=== PATIENT | female | born 1995 | race Caucasian/White ===

== ENCOUNTER → 2024-08-28 | Outpatient (CLI) | payer OTHER ==
[~2024-08-28] MED LIST: IBUP600 PO; LOPE2C PO; PHENA200 PO; SULTRIDS PO
[2024-08-28 10:51] LABS: Source, Urine Clean Catch
[2024-08-28 13:27] LABS: Yeast/Fungi Urine Few /hpf
[2024-08-28 13:29] LABS: Bacteria Mod /hpf; Calcium Oxalate Crystals Few /hpf; Red Blood Cells, Urine 0-2 /hpf (0-2); Squamous Epithelial Cells Few /hpf (Few); White Blood Cells, Urine 0-2 /hpf (0-5)
== END | disposition home or self-care (01) ==
LOC: LAB SHORT 10:49
PROVIDERS: Obstetrics & Gynecology
DX: Z34.01 Encounter for supervision of normal first pregnancy, first trimester (principal)
CPT/HCPCS: 81015; 87086

== ENCOUNTER → 2025-03-18 | Outpatient (CLI) | payer OTHER | LOC: LAB 14:33 → LAB SHORT 14:33 | DX: O09.93 Supervision of high risk pregnancy, unspecified, third trimester (principal); Z3A.00 Weeks of gestation of pregnancy not specified | CPT/HCPCS: 87081; 87150 ==

== ENCOUNTER 2025-04-09 20:04 | Inpatient (IN) | payer OTHER ==
[~2025-04-09] VITALS: Ht 160 cm; Wt 106.4 kg
[2025-04-09] MEDS ORDERED: Tranexamic Acid 100 ML IV SCH (20:35)
[2025-04-09] MEDS ORDERED: Carboprost Tromethamine 250 MCG/ML 1ML Amp IM PRN (20:35)
[2025-04-09] MEDS ORDERED: ePHEDrine Sulfate 50 MG/ML 1ML Injection XX PRN (20:35)
[2025-04-09] MEDS ORDERED: Oxytocin 10 Unit / ML Vial IM PRN (20:35)
[2025-04-09] MEDS ORDERED: FentaNYL 2mcg/ml-Bup 0.1% Epd 250 ML EPI PRN (20:35)
[2025-04-09] MEDS ORDERED: Ondansetron HCl 2 MG / ML 2ML Vial IV PRN (20:35)
[2025-04-09] MEDS ORDERED: OXYTOCIN/RINGER'S LACTATE 500 ML IV PRN (20:35)
[2025-04-09] MEDS ORDERED: Methylergonovine Maleate 0.2MG / ML 1ML Amp IM PRN (20:35)
[2025-04-09] MEDS ORDERED: OXYTOCIN/RINGER'S LACTATE 500 ML IV SCH (20:45)
[2025-04-09 20:46] VITALS: BP 131/93
[2025-04-09] MEDS ORDERED: ASPI81CH PO (20:58)
[2025-04-09] MEDS ORDERED: PRENATAL TABLE1 EAC2 PO (20:58)
[2025-04-09] MEDS ORDERED: ALBU90OI INH (21:00)
[2025-04-09 21:13] LABS: BASOPHILS ABSOLUTE AUTO 0.05 K/mm3 (0.00-0.23); BASOPHILS PERCENT AUTO 0 % (0-2); EOSINOPHILS ABSOLUTE AUTO 0.13 K/mm3 (0.00-0.68); EOSINOPHILS PERCENT AUTO 1 % (0-6); Hematocrit 35.4 % (33.0-51.0); Hemoglobin 12.1 g/dL (11.5-16.0); IMMATURE GRAN ABSOLUTE AUTO 0.16 K/mm3 (0.00-0.10); IMMATURE GRAN PERCENT AUTO 1 % (0-1); LYMPHOCYTES ABSOLUTE AUTO 3.20 K/mm3 (0.84-5.20); LYMPHOCYTES PERCENT AUTO 26 % (21-46); MONOCYTES ABSOLUTE AUTO 0.66 K/mm3 (0.16-1.47); MONOCYTES PERCENT AUTO 5 % (4-13); Mean Corpuscular HGB Conc 34.2 g/dL (31.5-36.5); Mean Corpuscular Volume 78 fL (80-100); NEUTROPHILS ABSOLUTE AUTO 8.23 K/mm3 (1.96-9.15); NEUTROPHILS PERCENT AUTO 66 % (41-73); NRBC ABSOLUTE 0.00 K/mm3 (0.00-0.02); NRBC Auto 0.0 /100 WBC (0.0-0.2); Platelet Count 254 K/mm3 (150-400); RDW Coefficient Variation 14.8 % (11.7-14.2); RDW Standard Deviation 42.4 fL (35.1-46.3)
[2025-04-09 22:05] VITALS: BP 135/87
[2025-04-09 22:36] VITALS: BP 128/76
[2025-04-09 23:06] VITALS: BP 118/76
[2025-04-09 23:36] VITALS: BP 119/69
[2025-04-10] VITALS (46 sets, daily range): BP systolic 94–152; BP diastolic 46–98
[2025-04-10] MEDS ORDERED: Methylergonovine Maleate 0.2MG / ML 1ML Amp IV ONE (05:48)
[2025-04-10] MEDS ORDERED: FentaNYL Citrate 50 MCG/ML 2 ML Injection ONE (15:01)
[2025-04-10] MEDS ORDERED: FentaNYL Citrate 50 MCG/ML 2 ML Injection IV PRN (15:05)
[2025-04-11] VITALS (14 sets, daily range): BP systolic 113–140; BP diastolic 60–93
[2025-04-11] MEDS ORDERED: FLU VACC TS2025-26(6MOS UP)/PF 45 MCG/0.5 ML SYRINGE IM SCH (00:45)
[2025-04-11] MEDS ORDERED: Methylergonovine Maleate 0.2MG / ML 1ML Amp IM PRN (00:45)
[2025-04-11] MEDS ORDERED: Rho(D) Immune Globulin 300 MCG / SYR IM ONE (00:45)
[2025-04-11] MEDS ORDERED: OXYTOCIN/RINGER'S LACTATE 500 ML IV SCH (00:45)
[2025-04-11] MEDS ORDERED: Witch Hazel/Glycerin PADS TOP PRN (00:45)
[2025-04-11] MEDS ORDERED: Ketorolac Tromethamine 30mg Vial IV PRN (00:45)
[2025-04-11] MEDS ORDERED: Benzocaine Topical Anesthetic Spray 60GM TOP PRN (00:50)
[2025-04-11] MEDS ORDERED: Tranexamic Acid 100 ML IV SCH (01:00)
[2025-04-11 05:25] LABS: Hematocrit 31.0 % (33.0-51.0); Hemoglobin 10.6 g/dL (11.5-16.0); Mean Corpuscular HGB Conc 34.2 g/dL (31.5-36.5); Mean Corpuscular Volume 80 fL (80-100); NRBC ABSOLUTE 0.00 K/mm3 (0.00-0.02); NRBC Auto 0.0 /100 WBC (0.0-0.2); Platelet Count 245 K/mm3 (150-400); RDW Coefficient Variation 14.9 % (11.7-14.2); RDW Standard Deviation 43.3 fL (35.1-46.3)
[2025-04-11] MEDS ORDERED: Prenatal Vit/FE Fumarate/FA 1 Tab PO SCH (09:00)
[2025-04-11] MEDS ORDERED: Rho(D) Immune Globulin 300 MCG / SYR IV ONE (10:15)
--- NOTE | 2025-04-12 03:33 | NUR ---
Assumed care at start of shift, mother resting in chair nursing at this time. Previous shift reports nipple shield given as mother has flat nipples. Not observed at this time as mother is independently. Offered help at each encounter as desired by mother, but mother declines need. Mother reports is nursing well with shield, instructed on how to put on after observing mother place the nipple sheild onto nipple incorrectly. Reports adequate pain control and decreased bleeding.
[2025-04-12 04:28] VITALS: BP 123/79
[2025-04-12 07:01] VITALS: BP 123/78
== END 2025-04-12 09:53 | disposition home or self-care (01) | DRG 806 ==
LOC: OBS 20:04 → BC 20:21
PROVIDERS: ADMIT Obstetrics & Gynecology
PROC: 10E0XZZ Delivery of Products of Conception, External Approach (ICD-10-PCS; principal; 2025-04-10)
PROC: 3E033VJ Introduction of Other Hormone into Peripheral Vein, Percutaneous Approach (ICD-10-PCS; 2025-04-10)
PROC: 10907ZC Drainage of Amniotic Fluid, Therapeutic from Products of Conception, Via Natural or Artificial Opening (ICD-10-PCS; 2025-04-10)
PROC: 10H07YZ Insertion of Other Device into Products of Conception, Via Natural or Artificial Opening (ICD-10-PCS; 2025-04-10)
PROC: 3E0334Z Introduction of Serum, Toxoid and Vaccine into Peripheral Vein, Percutaneous Approach (ICD-10-PCS; 2025-04-11)
PROC: 3E00X4Z Introduction of Serum, Toxoid and Vaccine into Skin and Mucous Membranes, External Approach (ICD-10-PCS; 2025-04-11)
DX: O26.893 Other specified pregnancy related conditions, third trimester (principal); D62 Acute posthemorrhagic anemia; Z37.0 Single live birth; O99.214 Obesity complicating childbirth; Z67.41 Type O blood, Rh negative; O99.52 Diseases of the respiratory system complicating childbirth; J45.909 Unspecified asthma, uncomplicated; Z3A.39 39 weeks gestation of pregnancy
CPT/HCPCS: 36415; 51701; 59414; 85025; 85027; 85460; 86850; 86900; 86901; 86923; 90471; 90707; 96372; A9270; J1885; J2210; J2405; J2590; J2791; J3010; J7120

== ENCOUNTER → 2025-04-23 | Outpatient (CLI) | payer OTHER ==
[~2025-04-23] MED LIST changes: +ALBU90OI INH; +ASPI81CH PO; +PRENATAL TABLE1 EAC2 PO
[2025-04-23 18:11] LABS: Source, Urine Clean Catch
[2025-04-23 19:25] LABS: Bilirubin, Urine Neg (Neg); Color, Urine Yellow (P-Yellow); Glucose Qualitative, Urine Neg (Neg); Ketones, Urine Neg (Neg); Leukocyte Esterase, Urine 3+ (Neg); Protein, Urine 2+ (Neg); Specific Gravity, Urine 1.020 (1.003-1.022); Urobilinogen, Urine NORM (Normal)
[2025-04-23 19:50] LABS: Red Blood Cells, Urine TNTC /hpf (0-2); White Blood Cells, Urine TNTC /hpf (0-5)
== END ==
LOC: LAB 18:10 → LAB SHORT 18:10
PROVIDERS: Obstetrics & Gynecology
DX: R30.0 Dysuria (principal)
CPT/HCPCS: 81001; 87086